=== PATIENT | male | born 1985 | race Caucasian/White ===

== ENCOUNTER 2016-12-20 22:06 | Emergency (ER) | payer OTHER ==
--- NOTE | 2016-12-20 23:17 | ED NURSING NOTES ---
Clinical Report - Nurses [facility] [place] [address] 12/20/2016 22:09 Patient: NATANAEL BRAND TRIAGE Triage time 22:19. Acuity: LEVEL 4. Chief Complaint: SORE THROAT and (bilateral ear pain). --22:23 Venkat Cervantes R.N. 22:19 12/20/16. BP: 121/84. HR: 88. RR: 15. O2 saturation: 97%. Temp: 97.9 F. Pain level now 11/20. --22:23 Venkat Cervantes R.N. Weight: 108.8 kg stated. Height/Length: 70 inches Per Patient. BMI: 34.4. --22:21 Venkat Cervantes R.N. Medications Albuterol Sulfate Inhalation. --22:21 Venkat Cervantes R.N. Medication/allergy information source: the patient. --22:23 Venkat Cervantes R.N. Allergies No Known Drug Allergy. --22:21 Venkat Cervantes R.N. History Arrived by private vehicle. Historian: patient. Accompanied by family. Onset. (a few days ago). ( Pt came in with a sore throat and bilateral ear pain. Pt also came in with his daughter that has a fever, cough and drainage from the eyes. Pt denies any sob or fever.). He has had ear pain. 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 PAST MEDICAL HX: Immunizations: up-to-date. SOCIAL HX: Never smoker. Occasional alcohol use; consumes beer occasionally. No drug use. --22:23 Venkat Cervantes R.N. PROBLEMS: Asthma. --22:22 Venkat Cervantes R.N. Interventions ID band on patient. To treatment room. --22:23 Venkat Cervantes R.N. PHYSICAL ASSESSMENT GENERAL / NEURO / PSYCH: Alert. Oriented X 4. Appears in no acute distress. HEENT: Pupils equal, round and reactive to light. Pharynx within normal limits. Voice within normal limits. ( sore throat with bilateral ear pain with no signs of drainage from the ears. Pt stated he does not have pain when swallowing.). Mucous membranes are pink. RESPIRATORY: Respirations not labored. CVS: Capillary refill less than 2 seconds. SKIN: Skin is warm and dry. Normal skin turgor. --22:24 Venkat Cervantes R.N. NURSING PROGRESS NOTES ( Pt was sitting in the rocking chair.). --22:25 Venkat Cervantes R.N. GENERAL / NEURO / PSYCH: Alert. Anjelica Coma Scale: 15- eyes open spontaneously (4); best verbal response- oriented x 4 (5); best motor response- obeys commands (6). Oriented X 4. RESPIRATORY: No respiratory distress. Breath sounds normal. CVS: Heart sounds within normal limits. Capillary refill less than 2 seconds. SKIN: Skin is warm and dry. --22:31 Vish Fenton R.N. The initial plan of care for this patient has been created This plan of care was discussed with the patient. Reassurance given to the patient. --22:31 Vish Fenton R.N. Patient ID band checked for patient name and birthdate: patient confirmed. Throat swab obtained for rapid strep and culture; labeled in the presence of the patient and sent to lab. --22:40 Vish Fenton R.N. 22:44 12/20/2016 Motrin PO Tablets 800 mg given. Allergies verified and confirmed 5 rights. --22:44 Vish Fenton R.N. HEENT: Erythema and pain upon movement of the right auricle; right TM reveals erythema. Left TM reveals bulging. --22:53 Vish Fenton R.N. DISPOSITION / DISCHARGE Departure time: 23:32. Condition at departure: unchanged. No learning barriers present. Discharge instructions provided and reviewed with the patient. Reviewed medication(s) side effects, precautions, dosing and course information (nasal spray Tylenol ibuprofen). Patient verbalized understanding. Written instructions provided in Bhutanese. The patient was discharged by the physician. He was discharged home and accompanied by spouse. He left the Emergency Department ambulatory and via private vehicle. Spouse driving. ANJELICA COMA SCORE: Anjelica Coma Scale: 15- eyes open spontaneously (4); best verbal response- oriented x 4 (5); best motor response- obeys commands (6). --23:32 Venkat Cervantes R.N. 23:30 12/20/16. BP: 115/79. HR: 88. RR: 15. O2 saturation: 98%. Temp: 97.9 F. Pain level now 0/10. --23:32 Venkat Cervantes R.N. Locked/Released at 12/20/2016 23:32 by Venkat Cervantes R.N.
--- NOTE | 2016-12-20 23:17 | ED ORDER SUMMARY ---
..... Patient: NATANAEL BRAND OrderSheet [facility] VisitID: [id number] [address] [place] [address] 31y, M Registration Date/Time: 12/20/2016 ORDER SHEET Weight: 108.8 kg (stated) Allergies: No Known Drug Allergy GENERAL ORDERS: Culture, Strep Screen Urgent (22:33 12/20/2016 Angelito Castrejon.A.-C) (Ack 22:34 SRedmond) (22:40 JDeElena R.N.) MEDICATION ORDERS: Motrin PO 800 mg (NOW) (22:41 12/20/2016 Angelito Castrejon.A.-C) (Ack 22:41 JDeElena R.N.) (22:44 JDeElena R.N.) IV FLUIDS: ORDER SHEET NOTES: [Electronically signed by Venkat Cervantes R.N. (23:32 12/20/2016)] [Electronically signed by Elana Conner P.A.-C (23:32 12/20/2016)] [Electronically locked/signed by Venkat Cervantes R.N. (23:32 12/20/2016)]
--- NOTE | 2016-12-20 23:17 | ED CLINICAL REPORT ---
Clinical Report - Physicians/Mid Levels [facility] [address] [place] [address] 12/20/2016 22:09 Patient: NATANAEL BRAND Time Seen: 22:41 Dec 20 2016. Arrived- By private vehicle. Historian- patient. HISTORY OF PRESENT ILLNESS Chief Complaint: COUGH and CHILLS. 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 The patient has had a sore throat, hoarseness, nasal congestion, fever and chills. (Patient reports multiple sick contacts at home, his children, one who is here also. Patient reports bilateral otalgia, sore throat. Denies any fevers. Tylenol today. Denies a cough. Denies any nausea vomiting arthralgia, myalgias.). REVIEW OF SYSTEMS No headache, vomiting, diarrhea, hay fever or pedal edema. No calf pain. All systems otherwise negative, except as recorded above. PAST HISTORY Problems: Asthma. Medications: Albuterol Sulfate Inhalation. Allergies: No Known Drug Allergy. SOCIAL HISTORY Never smoker. No drug use. ADDITIONAL NOTES The nursing notes have been reviewed. PHYSICAL EXAM Vital Signs: 12/20/2016 22:19 BP: 121/84. HR: 88. RR: 15. O2 saturation: 97%. Temp: 97.9 F. Appearance: Alert. Eyes: Eyes normal inspection. ENT: Ears normal. Nose normal. Pharynx normal. CVS: Normal heart rate and rhythm. Heart sounds normal. Respiratory: No respiratory distress. Breath sounds normal. No retractions or decreased breath sounds. Abdomen: Soft. Skin: Skin warm. Normal skin color. Neuro: Oriented X 3. PROGRESS AND PROCEDURES Course of Care: patient given Motrin for pain of his otalgia, no signs of infectious process. Patient is stable. Retropharynx unremarkable. He has no cough, afebrile, good sat, lungs clear. 12/20/2016 22:19 BP: 121/84. HR: 88. RR: 15. O2 saturation: 97%. Temp: 97.9 F. Patient is stable. Patient/family counseled. Differential Diagnosis: I considered pharyngitis, viral pharyngitis, bacterial pharyngitis, tonsillitis, stomatitis, thrush, allergic stomatitis, mononucleosis, peritonsillar cellulitis, parapharyngeal abscess, sinusitis, other infectious etiology and foreign body as a possible cause of sore throat in this patient. Disposition: Discharged. CLINICAL IMPRESSION Acute right and left otalgia. Upper respiratory infection. Sinusitis. INSTRUCTIONS Drink plenty of fluids. Prescription Medications: Nasacort nasal spray: 1 spray to each nostril three times daily for 1 week, for congestion. Dispense one (1) unit. No refill. Substitution is permissible. OTC Medications: Take acetaminophen (Tylenol, Datril, etc.), ibuprofen (Advil, Nuprin, etc.), Benadryl and Sudafed according to label instructions. Available over the counter. Follow-up: Follow up with your doctor in three days. (Electronically signed by Elana Conner P.A.-C 12/20/2016 23:32)
--- NOTE | 2016-12-20 23:17 | ED NURSING NOTES ---
Clinical Report - Nurses [facility] [place] [address] 12/20/2016 22:09 Patient: NATANAEL BRAND TRIAGE Triage time 22:19. Acuity: LEVEL 4. Chief Complaint: SORE THROAT and (bilateral ear pain). --22:23 Venkat Cervantes R.N. 22:19 12/20/16. BP: 121/84. HR: 88. RR: 15. O2 saturation: 97%. Temp: 97.9 F. Pain level now 11/20. --22:23 Venkat Cervantes R.N. Weight: 108.8 kg stated. Height/Length: 70 inches Per Patient. BMI: 34.4. --22:21 Venkat Cervantes R.N. Medications Albuterol Sulfate Inhalation. --22:21 Venkat Cervantes R.N. Medication/allergy information source: the patient. --22:23 Venkat Cervantes R.N. Allergies No Known Drug Allergy. --22:21 Venkat Cervantes R.N. History Arrived by private vehicle. Historian: patient. Accompanied by family. Onset. (a few days ago). ( Pt came in with a sore throat and bilateral ear pain. Pt also came in with his daughter that has a fever, cough and drainage from the eyes. Pt denies any sob or fever.). He has had ear pain. 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 PAST MEDICAL HX: Immunizations: up-to-date. SOCIAL HX: Never smoker. Occasional alcohol use; consumes beer occasionally. No drug use. --22:23 Venkat Cervantes R.N. PROBLEMS: Asthma. --22:22 Venkat Cervantes R.N. Interventions ID band on patient. To treatment room. --22:23 Venkat Cervantes R.N. PHYSICAL ASSESSMENT GENERAL / NEURO / PSYCH: Alert. Oriented X 4. Appears in no acute distress. HEENT: Pupils equal, round and reactive to light. Pharynx within normal limits. Voice within normal limits. ( sore throat with bilateral ear pain with no signs of drainage from the ears. Pt stated he does not have pain when swallowing.). Mucous membranes are pink. RESPIRATORY: Respirations not labored. CVS: Capillary refill less than 2 seconds. SKIN: Skin is warm and dry. Normal skin turgor. --22:24 Venkat Cervantes R.N. NURSING PROGRESS NOTES ( Pt was sitting in the rocking chair.). --22:25 Venkat Cervantes R.N. GENERAL / NEURO / PSYCH: Alert. Anjelica Coma Scale: 15- eyes open spontaneously (4); best verbal response- oriented x 4 (5); best motor response- obeys commands (6). Oriented X 4. RESPIRATORY: No respiratory distress. Breath sounds normal. CVS: Heart sounds within normal limits. Capillary refill less than 2 seconds. SKIN: Skin is warm and dry. --22:31 Vish Fenton R.N. The initial plan of care for this patient has been created This plan of care was discussed with the patient. Reassurance given to the patient. --22:31 Vish Fenton R.N. Patient ID band checked for patient name and birthdate: patient confirmed. Throat swab obtained for rapid strep and culture; labeled in the presence of the patient and sent to lab. --22:40 Vish Fenton R.N. 22:44 12/20/2016 Motrin PO Tablets 800 mg given. Allergies verified and confirmed 5 rights. --22:44 Vish Fenton R.N. HEENT: Erythema and pain upon movement of the right auricle; right TM reveals erythema. Left TM reveals bulging. --22:53 Vish Fenton R.N. DISPOSITION / DISCHARGE Departure time: 23:32. Condition at departure: unchanged. No learning barriers present. Discharge instructions provided and reviewed with the patient. Reviewed medication(s) side effects, precautions, dosing and course information (nasal spray Tylenol ibuprofen). Patient verbalized understanding. Written instructions provided in [place]anian. The patient was discharged by the physician. He was discharged home and accompanied by spouse. He left the Emergency Department ambulatory and via private vehicle. Spouse driving. ANJELICA COMA SCORE: Anjelica Coma Scale: 15- eyes open spontaneously (4); best verbal response- oriented x 4 (5); best motor response- obeys commands (6). --23:32 Venkat Cervantes R.N. 23:30 12/20/16. BP: 115/79. HR: 88. RR: 15. O2 saturation: 98%. Temp: 97.9 F. Pain level now 0/10. --23:32 Venkat Cervantes R.N. Locked/Released at 12/20/2016 23:32 by Venkat Cervantes R.N.
--- NOTE | 2016-12-20 23:17 | ED ORDER SUMMARY ---
..... Patient: NATANAEL BRAND OrderSheet [facility] VisitID: [id number] [address] [place] [address] 31y, M Registration Date/Time: 12/20/2016 ORDER SHEET Weight: 108.8 kg (stated) Allergies: No Known Drug Allergy GENERAL ORDERS: Culture, Strep Screen Urgent (22:33 12/20/2016 Angelito Castrejon.A.-C) (Ack 22:34 SRedmond) (22:40 JDeElena R.N.) MEDICATION ORDERS: Motrin PO 800 mg (NOW) (22:41 12/20/2016 Angelito Castrejon.A.-C) (Ack 22:41 JDeElena R.N.) (22:44 JDeElena R.N.) IV FLUIDS: ORDER SHEET NOTES: [Electronically signed by Venkat Cervantes R.N. (23:32 12/20/2016)] [Electronically signed by Elana Conner P.A.-C (23:32 12/20/2016)] [Electronically locked/signed by Venkat Cervantes R.N. (23:32 12/20/2016)]
--- NOTE | 2016-12-20 23:17 | ED CLINICAL REPORT ---
Clinical Report - Physicians/Mid Levels [facility] [address] [place] [address] 12/20/2016 22:09 Patient: NATANAEL BRAND Time Seen: 22:41 Dec 20 2016. Arrived- By private vehicle. Historian- patient. HISTORY OF PRESENT ILLNESS Chief Complaint: COUGH and CHILLS. 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 The patient has had a sore throat, hoarseness, nasal congestion, fever and chills. (Patient reports multiple sick contacts at home, his children, one who is here also. Patient reports bilateral otalgia, sore throat. Denies any fevers. Tylenol today. Denies a cough. Denies any nausea vomiting arthralgia, myalgias.). REVIEW OF SYSTEMS No headache, vomiting, diarrhea, hay fever or pedal edema. No calf pain. All systems otherwise negative, except as recorded above. PAST HISTORY Problems: Asthma. Medications: Albuterol Sulfate Inhalation. Allergies: No Known Drug Allergy. SOCIAL HISTORY Never smoker. No drug use. ADDITIONAL NOTES The nursing notes have been reviewed. PHYSICAL EXAM Vital Signs: 12/20/2016 22:19 BP: 121/84. HR: 88. RR: 15. O2 saturation: 97%. Temp: 97.9 F. Appearance: Alert. Eyes: Eyes normal inspection. ENT: Ears normal. Nose normal. Pharynx normal. CVS: Normal heart rate and rhythm. Heart sounds normal. Respiratory: No respiratory distress. Breath sounds normal. No retractions or decreased breath sounds. Abdomen: Soft. Skin: Skin warm. Normal skin color. Neuro: Oriented X 3. PROGRESS AND PROCEDURES Course of Care: patient given Motrin for pain of his otalgia, no signs of infectious process. Patient is stable. Retropharynx unremarkable. He has no cough, afebrile, good sat, lungs clear. 12/20/2016 22:19 BP: 121/84. HR: 88. RR: 15. O2 saturation: 97%. Temp: 97.9 F. Patient is stable. Patient/family counseled. Differential Diagnosis: I considered pharyngitis, viral pharyngitis, bacterial pharyngitis, tonsillitis, stomatitis, thrush, allergic stomatitis, mononucleosis, peritonsillar cellulitis, parapharyngeal abscess, sinusitis, other infectious etiology and foreign body as a possible cause of sore throat in this patient. Disposition: Discharged. CLINICAL IMPRESSION Acute right and left otalgia. Upper respiratory infection. Sinusitis. INSTRUCTIONS Drink plenty of fluids. Prescription Medications: Nasacort nasal spray: 1 spray to each nostril three times daily for 1 week, for congestion. Dispense one (1) unit. No refill. Substitution is permissible. OTC Medications: Take acetaminophen (Tylenol, Datril, etc.), ibuprofen (Advil, Nuprin, etc.), Benadryl and Sudafed according to label instructions. Available over the counter. Follow-up: Follow up with your doctor in three days. (Electronically signed by Elana Conner P.A.-C 12/20/2016 23:32)
--- NOTE | 2016-12-20 23:32 | ED MAR SUMMARY ---
..... Medication Administration Record [facility] [address] [place] [address] Patient: NATANAEL BRAND Visit ID: [id number] 31y, M Weight: 108.8 kg Height/Length: 70 in BMI: 34.4 ALLERGIES: No Known Drug Allergy Given 22:44 12/20/2016 Vish Fenton RJarettNJarett Medication Administered: MOTRIN [PO], Dose: 800 mg Tablets PO. Medication Ordered: Motrin PO 800 mg (NOW).
--- NOTE | 2016-12-20 23:32 | ED MAR SUMMARY ---
..... Medication Administration Record [facility] [address] [place] [address] Patient: NATANAEL BRAND Visit ID: [id number] 31y, M Weight: 108.8 kg Height/Length: 70 in BMI: 34.4 ALLERGIES: No Known Drug Allergy Given 22:44 12/20/2016 Vish Fenton RJarettNJarett Medication Administered: MOTRIN [PO], Dose: 800 mg Tablets PO. Medication Ordered: Motrin PO 800 mg (NOW).
--- NOTE | 2016-12-20 23:32 | ED DISCHARGE INSTRUCTIONS ---
Patient: NATANAEL BRAND General Instructions [facility] VisitID: [id number] [place] [address] 31y, M Registration Date/Time: 12/20/2016 Acute right and left otalgia. Upper respiratory infection. Sinusitis. INSTRUCTIONS Drink plenty of fluids. Prescription Medications: Nasacort nasal spray: 1 spray to each nostril three times daily for 1 week, for congestion. Dispense one (1) unit. No refill. Substitution is permissible. OTC Medications: Take acetaminophen (Tylenol, Datril, etc.), ibuprofen (Advil, Nuprin, etc.), Benadryl and Sudafed according to label instructions. Available over the counter. Follow-up: Follow up with your doctor in three days. ADDITIONAL INFORMATION Viral Respiratory Illness [Adult] You have an Upper Respiratory Illness (URI) caused by a virus. This illness is contagious during the first few days. It is spread through the air by coughing and sneezing or by direct contact (touching the sick person and then touching your own eyes, nose or mouth). Most viral illnesses go away within 7-10 days with rest and simple home remedies. Sometimes, the illness may last for several weeks. Antibiotics will not kill a virus and are generally not prescribed for this condition. Home Care: 1) If symptoms are severe, rest at home for the first 2-3 days. When you resume activity, don't let yourself get too tired. 2) Avoid being exposed to cigarette smoke (yours or others). 3) Tylenol (acetaminophen) or ibuprofen (Advil, Motrin) will help fever, muscle aching and headache. (Persons under 18 with fever should not take aspirin since this may cause liver damage.) 4) Your appetite may be poor, so a light diet is fine. Avoid dehydration by drinking 6-8 glasses of fluids per day (water, soft drinks, juices, tea, soup). Extra fluids will help loosen secretions in the nose and lungs. 5) [id number] cold medicines will not shorten the length of time youre sick, but they may be helpful for the following symptoms: cough (Robitussin DM); sore throat (Chloraseptic lozenges or spray); nasal and sinus congestion (Actifed, Sudafed, Chlortrimeton). Follow Up with your doctor or as advised if you dont improve over the next week. Get Prompt Medical Attention if any of the following occur: -- Cough with lots of colored sputum (mucus) or blood in your sputum -- Chest pain, shortness of breath, wheezing or have trouble breathing -- Severe headache; face, neck or ear pain -- Fever over 100.4 F (38.0 C) for more than three days -- You cant swallow due to throat pain Triamcinolone Acetonide Nasal spray What is this medicine? TRIAMCINOLONE (trye am SIN oh lone) nasal spray is a corticosteroid. It is used to treat the nasal symptoms of seasonal and year round allergies. How should I use this medicine? This medicine is for use in the nose. Follow the directions on your prescription label. This medicine works best if used regularly. Do not use more often than directed. Make sure that you are using your nasal spray correctly. Ask you doctor or health care provider if you have any questions. Talk to your nuclear process engineer regarding the use of this medicine in children. While this drug may be prescribed for children as young as 2 years of age for selected conditions, precautions do apply. What side effects may I notice from receiving this medicine? Side effects that you should report to your doctor or health healthcare account manager as soon as possible: allergic reactions like skin rash, itching or hives, swelling of the face, lips, or tongue change in vision dizziness infection nosebleed, burning in the nose trouble breathing, wheezing unusual bruising white patches or sores in the nose Side effects that usually do not require medical attention (report to your doctor or health healthcare account manager if they continue or are bothersome): congestion cough headache nausea runny nose sneezing What may interact with this medicine? Interactions are not expected. What if I miss a dose? If you miss a dose, take it as soon as you can. If it is almost time for your next dose, take only that dose. Do not take double or extra doses. Where should I keep my medicine? Keep out of the reach of children. Store at room temperature between 20 and 25 degrees C (68 and 77 degrees F). Throw away the canister after 120 sprays or after the expiration date, whichever comes first. What should I tell my health care provider before I take this medicine? They need to know if you have any of these conditions: infection, like tuberculosis, herpes, or fungal infection recent surgery or injury of nose or sinuses taking corticosteroids by mouth an unusual or allergic reaction to triamcinolone, corticosteroids, other medicines, foods, dyes, or preservatives or trying to get breast-feeding What should I watch for while using this medicine? Check with your doctor or health healthcare account manager if your symptoms do not improve in 1 week of regular use or if they get worse. Do not come in contact with people who have chickenpox or the measles while you are taking this medicine. If you do, call your doctor right away. You have been given the following additional information: Uri, Viral, No Abx (Adult) Triamcinolone Acetonide Nasal spray (Electronically signed by Elana Conner P.A.-C 12/20/2016 23:32)
--- NOTE | 2016-12-20 23:32 | ED DISCHARGE INSTRUCTIONS ---
Patient: NATANAEL BRAND General Instructions [facility] VisitID: [id number] [place] [address] 31y, M Registration Date/Time: 12/20/2016 Acute right and left otalgia. Upper respiratory infection. Sinusitis. INSTRUCTIONS Drink plenty of fluids. Prescription Medications: Nasacort nasal spray: 1 spray to each nostril three times daily for 1 week, for congestion. Dispense one (1) unit. No refill. Substitution is permissible. OTC Medications: Take acetaminophen (Tylenol, Datril, etc.), ibuprofen (Advil, Nuprin, etc.), Benadryl and Sudafed according to label instructions. Available over the counter. Follow-up: Follow up with your doctor in three days. ADDITIONAL INFORMATION Viral Respiratory Illness [Adult] You have an Upper Respiratory Illness (URI) caused by a virus. This illness is contagious during the first few days. It is spread through the air by coughing and sneezing or by direct contact (touching the sick person and then touching your own eyes, nose or mouth). Most viral illnesses go away within 7-10 days with rest and simple home remedies. Sometimes, the illness may last for several weeks. Antibiotics will not kill a virus and are generally not prescribed for this condition. Home Care: 1) If symptoms are severe, rest at home for the first 2-3 days. When you resume activity, don't let yourself get too tired. 2) Avoid being exposed to cigarette smoke (yours or others). 3) Tylenol (acetaminophen) or ibuprofen (Advil, Motrin) will help fever, muscle aching and headache. (Persons under 18 with fever should not take aspirin since this may cause liver damage.) 4) Your appetite may be poor, so a light diet is fine. Avoid dehydration by drinking 6-8 glasses of fluids per day (water, soft drinks, juices, tea, soup). Extra fluids will help loosen secretions in the nose and lungs. 5) [id number]-rqa-[id number] cold medicines will not shorten the length of time youre sick, but they may be helpful for the following symptoms: cough (Robitussin DM); sore throat (Chloraseptic lozenges or spray); nasal and sinus congestion (Actifed, Sudafed, Chlortrimeton). Follow Up with your doctor or as advised if you dont improve over the next week. Get Prompt Medical Attention if any of the following occur: -- Cough with lots of colored sputum (mucus) or blood in your sputum -- Chest pain, shortness of breath, wheezing or have trouble breathing -- Severe headache; face, neck or ear pain -- Fever over 100.4 F (38.0 C) for more than three days -- You cant swallow due to throat pain Triamcinolone Acetonide Nasal spray What is this medicine? TRIAMCINOLONE (trye am SIN [place]) nasal spray is a corticosteroid. It is used to treat the nasal symptoms of seasonal and year round allergies. How should I use this medicine? This medicine is for use in the nose. Follow the directions on your prescription label. This medicine works best if used regularly. Do not use more often than directed. Make sure that you are using your nasal spray correctly. Ask you doctor or health care provider if you have any questions. Talk to your senior product consultant regarding the use of this medicine in children. While this drug may be prescribed for children as young as 2 years of age for selected conditions, precautions do apply. What side effects may I notice from receiving this medicine? Side effects that you should report to your doctor or health day care home mother as soon as possible: allergic reactions like skin rash, itching or hives, swelling of the face, lips, or tongue change in vision dizziness infection nosebleed, burning in the nose trouble breathing, wheezing unusual bruising white patches or sores in the nose Side effects that usually do not require medical attention (report to your doctor or health day care home mother if they continue or are bothersome): congestion cough headache nausea runny nose sneezing What may interact with this medicine? Interactions are not expected. What if I miss a dose? If you miss a dose, take it as soon as you can. If it is almost time for your next dose, take only that dose. Do not take double or extra doses. Where should I keep my medicine? Keep out of the reach of children. Store at room temperature between 20 and 25 degrees C (68 and 77 degrees F). Throw away the canister after 120 sprays or after the expiration date, whichever comes first. What should I tell my health care provider before I take this medicine? They need to know if you have any of these conditions: infection, like tuberculosis, herpes, or fungal infection recent surgery or injury of nose or sinuses taking corticosteroids by mouth an unusual or allergic reaction to triamcinolone, corticosteroids, other medicines, foods, dyes, or preservatives or trying to get breast-feeding What should I watch for while using this medicine? Check with your doctor or health day care home mother if your symptoms do not improve in 1 week of regular use or if they get worse. Do not come in contact with people who have chickenpox or the measles while you are taking this medicine. If you do, call your doctor right away. You have been given the following additional information: Uri, Viral, No Abx (Adult) Triamcinolone Acetonide Nasal spray (Electronically signed by Elana Conner P.A.-C 12/20/2016 23:32)
--- NOTE | 2016-12-20 23:33 | ED MED RECONCILIATION SUMMARY ---
Patient: NATANAEL BRAND Medication Reconciliation Report [facility] VisitID: [id number] [address] [place] [address] 31y, M Registration Date/Time: 12/20/2016 Weight: 108.8 kg Height/Length: 70 in. BMI: 34.4 ALLERGIES: No Known Drug Allergy The patient's Home Medications are listed below: THE FOLLOWING MEDICATIONS NEED TO BE RECONCILED: Albuterol Sulfate Inhalation The source(s) of the original Home Medication information: patient The following Medications were given to the patient in the Emergency Department: Motrin [PO] PO 800 mg, administered: 12/20/2016 10:44:00 PM The following Medications were prescribed to the patient: Take acetaminophen (Tylenol, Datril, etc.), ibuprofen (Advil, Nuprin, etc.), Benadryl and Sudafed according to label instructions. Available over the counter. -- Elana Conner, P.ATigre Nasacort nasal spray: 1 spray to each nostril three times daily for 1 week, for congestion. Dispense one (1) unit. No refill. Substitution is permissible. -- Elana Conner P.A.AndrewsC
--- NOTE | 2016-12-20 23:33 | ED MED RECONCILIATION SUMMARY ---
Patient: NATANAEL BRAND Medication Reconciliation Report [facility] VisitID: [id number] [address] [place] [address] 31y, M Registration Date/Time: 12/20/2016 Weight: 108.8 kg Height/Length: 70 in. BMI: 34.4 ALLERGIES: No Known Drug Allergy The patient's Home Medications are listed below: THE FOLLOWING MEDICATIONS NEED TO BE RECONCILED: Albuterol Sulfate Inhalation The source(s) of the original Home Medication information: patient The following Medications were given to the patient in the Emergency Department: Motrin [PO] PO 800 mg, administered: 12/20/2016 10:44:00 PM The following Medications were prescribed to the patient: Take acetaminophen (Tylenol, Datril, etc.), ibuprofen (Advil, Nuprin, etc.), Benadryl and Sudafed according to label instructions. Available over the counter. -- Elana Conner, P.ATigre Nasacort nasal spray: 1 spray to each nostril three times daily for 1 week, for congestion. Dispense one (1) unit. No refill. Substitution is permissible. -- Elana Conner P.A.AndrewsC
== END 2016-12-20 23:31 | disposition home or self-care (01) ==
LOC: ED SRH 22:06
DX: J06.9 Acute upper respiratory infection, unspecified (principal); B95.4 Other streptococcus as the cause of diseases classified elsewhere; J32.9 Chronic sinusitis, unspecified; H92.01 Otalgia, right ear; H92.02 Otalgia, left ear; J45.909 Unspecified asthma, uncomplicated; Z79.899 Other long term (current) drug therapy
CPT/HCPCS: 90154; 90159; 90627